=== PATIENT | female | born 1990 | race Caucasian/White ===

== ENCOUNTER 2018-10-18 16:58 | Emergency (ER) | payer OTHER ==
[~2018-10-18] VITALS: Ht 160 cm; Wt 74.5 kg
[2018-10-18 17:04] VITALS: TEMP 98.3
[2018-10-18 17:21] LABS: COLLECTION METHOD CLEAN CATCH
[2018-10-18 17:34] LABS: PH 7 (5-8); URINE APPEARANCE Clear; URINE BACTERIA None Seen /hpf; URINE BILIRUBIN Negative (NEGATIVE); URINE BLOOD Negative (NEGATIVE); URINE COLOR Straw; URINE GLUCOSE Negative (NEGATIVE); URINE KETONE Negative (NEGATIVE); URINE LEUKOCYTE ESTERASE Negative (NEGATIVE); URINE NITRATE Negative (NEGATIVE); URINE PROTEIN(semi-quant) Negative (NEGATIVE); URINE RBC None Seen /hpf; URINE UROBILINOGEN Negative (NEGATIVE)
[2018-10-18 17:44] LABS: BASO % 0.6 % (0.0-2.0); EOS # 0.1 (0.0-0.7); EOS % 1.5 % (0-4.0); GRAN # 4.9 (1.4-6.5); GRAN % 68.4 % (42.2-75.2); HEMOGLOBIN 13.3 g/dl (12.5-16.0); LYMPH # 1.7 (1.2-3.4); MEAN CELL VOLUME 89 fl (80.0-100.0); MEAN CORPUSCULAR HEMOGLOBIN 30 pg (27.0-31.0); MEAN CORPUSCULAR HGB CONC 33 g/dl (33.0-37.0); MEAN PLATELET VOLUME 10.5 fl (7.4-10.4); MONO # 0.4 (0.1-0.6); MONO % 5.4 % (1.7-9.3); PLATELET COUNT 263 K/mm3 (130-400); RED BLOOD COUNT 4.51 M/mm3 (4.10-5.30); REDCELL DISTRIBUTION WIDTH-CV 13.1 % (11.5-14.5)
[2018-10-18 17:53] LABS: ALBUMIN 4.1 gm/dL (3.5-5.0); BILIRUBIN,TOTAL 0.3 mg/dL (0.0-1.0); C-REACTIVE PROTEIN 0.8 mg/dL (0.0-0.9); CALCIUM 9.1 mg/dL (8.4-10.2); CREATININE, serum 0.6 mg/dL (0.52-1.25); POTASSIUM 4.2 mmol/L (3.4-5.0)
[2018-10-18] MEDS ORDERED: ZOFRAN 4MG T4 MG/TAB PO (18:59)
[2018-10-18] MEDS ORDERED: MOTRIN 800800 MG/TAB PO (18:59)
[2018-10-18 19:12] VITALS: BP 103/75; PULSE 79
== END 2018-10-18 19:20 | disposition home or self-care (01) ==
LOC: COL.ER 16:58
PROVIDERS: Emergency Medicine
DX: R10.30 Lower abdominal pain, unspecified (principal)
CPT/HCPCS: J1885; J2405; J7030; Q9967

== ENCOUNTER 2018-12-24 00:34 | Emergency (ER) | payer OTHER ==
[~2018-12-24] VITALS: Ht 160 cm; Wt 72.7 kg
[~2018-12-24 00:34] MED LIST: MOTRIN 800800 MG/TAB PO; ZOFRAN 4MG T4 MG/TAB PO
[2018-12-24 00:50] VITALS: BP 118/64; TEMP 102
[2018-12-24] MEDS ORDERED: ADIPEX-P37.5 MG (00:53)
[2018-12-24] MEDS ORDERED: TAMIFLU 75MG75 MG PO ×2 (01:47→05:49)
[2018-12-24 01:51] VITALS: PULSE 115
== END 2018-12-24 03:05 | disposition home or self-care (01) ==
LOC: COL.ER 00:34
DX: J11.1 Influenza due to unidentified influenza virus with other respiratory manifestations (principal)

== ENCOUNTER → 2019-12-20 | Outpatient (CLI) | payer OTHER ==
[~2019-12-20] MED LIST changes: +ADIPEX-P37.5 MG; +TAMIFLU 75MG75 MG PO
== END ==
LOC: COL.RAD 09:13
DX: R10.31 Right lower quadrant pain (principal)

== ENCOUNTER → 2020-07-26 | Outpatient (CLI) | payer OTHER | LOC: ZCOL.LAB 19:22 | DX: J02.9 Acute pharyngitis, unspecified (principal); Z20.828 Contact with and (suspected) exposure to other viral communicable diseases ==

== ENCOUNTER 2021-04-15 20:17 | Outpatient (CLI) | payer MEDICAID ==
[~2021-04-15] VITALS: Ht 157.5 cm; Wt 85.9 kg
[2021-04-15 20:50] VITALS: BP 109/64; PULSE 76
[2021-04-15 21:10] VITALS: BP 116/77; PULSE 77; TEMP 98.3
--- NOTE | 2021-04-15 21:25 | NUR ---
2039 G4L1 at 31.5 weeks gestation to LDR3 with c/o having dizzy spells, heart palpations and feeling like her heart is racing, right sided abdominal pain that comes and goes but last for a few hours when it comes, and a headache that started today. She reports good FM and denies CTX, ROM, or vaginal bleeding. Patient reports drinking 10 water bottles today. EFMs explained and applied. FHR 130 bpm and reactive. No CTX. SVE closed. VSS. Pulse ox applied and heart rate 70-[address] Daniels called and given report on patient. See physician notificiation. 2114 Patient off EFM and discharge instructions given. Patient encouraged to continue to drink plenty fluids throughtout the day and to eat small, frequent meals that include a protein every few hours. Patient was also informed that she could have up to 200mg of caffiene a day and that caffiene can help with dizzy spells although it can worse heart palpations. Patient was reassured that her vital signs are stable. Patient informed that she can take tylenol as directed on the bottle for headache. She has an apppointment with Dr. Welch next week. 2124 Patient discharged home in stable condition.
[2021-04-15] MEDS ORDERED: PRENATAL TABLET PO (21:29)
== END 2021-04-15 21:25 | disposition home or self-care (01) ==
LOC: LDRO 20:17 → COL.ER 20:17 → EDSTATUS 20:41 → LDRO 21:25
DX: O26.893 Other specified pregnancy related conditions, third trimester (principal); R00.2 Palpitations; R42 Dizziness and giddiness; R10.9 Unspecified abdominal pain; Z3A.31 31 weeks gestation of pregnancy

== ENCOUNTER 2021-06-03 13:42 | Outpatient (CLI) | payer MEDICAID ==
[~2021-06-03] VITALS: Ht 157.5 cm; Wt 94.5 kg
[~2021-06-03 13:42] MED LIST changes: +PRENATAL TABLET PO
--- NOTE | 2021-06-03 14:00 | NUR ---
Pt arrived on unit with complaints of contractions every 4-7 minutes, pt denies any leaking of fluid or vaginal bleedind and reports normal movement. EFM and toco monitors started. SVE by this RN . Plan of care for labor assessment reviewed. Information reviewed with Dr. Che. See physician notification for details.
[2021-06-03 15:03] VITALS: BP 115/67; PULSE 106; TEMP 98.5
== END 2021-06-03 15:13 | disposition home or self-care (01) ==
LOC: LDRO 13:42 → LDR 14:29 → LDRO 15:13
DX: O62.9 Abnormality of forces of labor, unspecified (principal); Z3A.38 38 weeks gestation of pregnancy
CPT/HCPCS: OP

== ENCOUNTER 2021-06-08 07:35 | Inpatient (IN) | payer MEDICAID ==
[~2021-06-08] VITALS: Ht 160 cm; Wt 95.0 kg
[2021-06-08] VITALS (19 sets, daily range): BP systolic 87–112; BP diastolic 39–90; PULSE 56–83; TEMP 97.6–98.1
[2021-06-08 13:33] LABS: BASO % 0.5 % (0.0-2.0); EOS # 0.1 (0.0-0.7); EOS % 0.8 % (0-4.0); GRAN # 5.7 (1.4-6.5); GRAN % 73.5 % (42.2-75.2); LYMPH # 1.4 (1.2-3.4); MEAN CELL VOLUME 77 fl (80.0-100.0); MEAN CORPUSCULAR HGB CONC 30 g/dl (33.0-37.0); MEAN PLATELET VOLUME 10.2 fl (7.4-10.4); MONO # 0.5 (0.1-0.6); MONO % 6.4 % (1.7-9.3); PLATELET COUNT 272 K/mm3 (130-400); RED BLOOD COUNT 4.24 M/mm3 (4.10-5.30); REDCELL DISTRIBUTION WIDTH-CV 16.8 % (11.5-14.5)
[2021-06-08 13:34] LABS: HEMATOCRIT 32.7 % (37.0-47.0); HEMOGLOBIN 9.9 g/dl (12.5-16.0); MEAN CORPUSCULAR HEMOGLOBIN 23 pg (27.0-31.0)
[2021-06-09 03:30] VITALS: BP 101/57; PULSE 65; TEMP 97.8
[2021-06-09 06:30] VITALS: BP 101/62; PULSE 57; TEMP 97.2
--- NOTE | 2021-06-09 07:15 | NUR ---
Rests in bed, alert. Tylenol 1000 mg given as ordered.
--- NOTE | 2021-06-09 09:35 | NUR ---
Ibuprofen 600 mg, oxycodone 5 mg given per request and as ordered.
[2021-06-09 12:31] LABS: MEAN CELL VOLUME 78 fl (80.0-100.0); MEAN CORPUSCULAR HGB CONC 30 g/dl (33.0-37.0); MEAN PLATELET VOLUME 9.7 fl (7.4-10.4); PLATELET COUNT 227 K/mm3 (130-400); RED BLOOD COUNT 3.46 M/mm3 (4.10-5.30); REDCELL DISTRIBUTION WIDTH-CV 16.9 % (11.5-14.5)
[2021-06-09 12:35] LABS: HEMOGLOBIN 8.2 g/dl (12.5-16.0); MEAN CORPUSCULAR HEMOGLOBIN 24 pg (27.0-31.0)
[2021-06-09 13:15] VITALS: BP 108/61; PULSE 57; TEMP 98
--- NOTE | 2021-06-09 13:30 | NUR ---
Rests in bed, alert. Tylenol 1000 mg, oxycodone 5 mg given per request and as ordered.
[2021-06-09 15:40] VITALS: BP 111/65; PULSE 56; TEMP 97.8
--- NOTE | 2021-06-09 18:35 | NUR ---
Report recieved. Showering at this time. In the processess of removing abd dressing. Updated whiteboard; denied assistance at this time.
[2021-06-09 19:45] VITALS: BP 113/68; PULSE 56; TEMP 97.4
[2021-06-10 07:10] VITALS: BP 113/48; PULSE 68; TEMP 97.9
[2021-06-10] MEDS ORDERED: IBU600 MG PO (10:17)
[2021-06-10] MEDS ORDERED: ROXICODONE 55 MG/TAB PO (10:17)
== END 2021-06-10 14:05 | disposition home or self-care (01) | DRG 788 ==
LOC: OB 12:27
PROVIDERS: Obstetrics & Gynecology; ADMIT Student in an Organized Health Care Education/Training Program
PROC: 10D00Z1 Extraction of Products of Conception, Low, Open Approach (ICD-10-PCS; principal; 2021-06-08)
DX: O34.211 Maternal care for low transverse scar from previous cesarean delivery (principal); Z3A.39 39 weeks gestation of pregnancy; Z37.0 Single live birth; O99.02 Anemia complicating childbirth; D64.9 Anemia, unspecified; O99.344 Other mental disorders complicating childbirth; F41.9 Anxiety disorder, unspecified
CPT/HCPCS: J0171; J0690; J1100; J1885; J2270; J2370; J2405; J2590; J7120